=== PATIENT | female | born 1980 | race African-American/Black ===

== ENCOUNTER 2020-12-17 04:33 | Emergency (ER) | payer MEDICAID ==
[~2020-12-17] VITALS: Ht 172.7 cm; Wt 104.5 kg
[2020-12-17 04:44] VITALS: BP 114/73
[2020-12-17] MEDS ORDERED: GUAIFENESIN/CODEINE 200-20MG/10ML UDC PO ONE (05:00)
[2020-12-17] MEDS ORDERED: BENZ-16 MT (05:13)
== END 2020-12-17 05:51 | disposition home or self-care (01) ==
LOC: ER 04:33
DX: R05 Cough (principal); R53.1 Weakness
CPT/HCPCS: 93005; 99283

== ENCOUNTER 2021-07-05 23:43 | Emergency (ER) | payer MEDICAID ==
[~2021-07-05] VITALS: Ht 172.7 cm; Wt 108.0 kg
[~2021-07-05 23:43] MED LIST: BENZ-16 MT
[2021-07-06] MEDS ORDERED: SODIUM CHLORIDE 0.9% 1,000 ML IV ONE (03:15)
[2021-07-06 03:38] LABS: BASOPHILS % 0.4 % (0.0-2.0); HEMATOCRIT. 30.3 % (36.0-48.0); HEMOGLOBIN. 9.4 g/dL (12.0-16.0); LYMPHOCYTES % 31.5 % (20.0-50.0); MEAN CORPUSCULAR HEMOGLOBIN 21.4 pg (28.0-32.0); MEAN CORPUSCULAR VOLUME 68.6 fL (81.0-99.0); MEAN PLATELET VOLUME 6.9 fl (7.4-10.4); MONOCYTES % 8.9 % (2.0-8.0); NEUTROPHILS % 58.2 % (40.0-76.0); PLATELET 334 x1000/uL (130-400); RED BLOOD CELL COUNT 4.41 mill/uL (4.2-5.4); RED CELL DISTRIBUTION WIDTH 17.9 % (11.6-14.6)
[2021-07-06 03:48] LABS: CHLORIDE 105 mEq/L (98-107)
[2021-07-06 04:59] LABS: PLATELET ESTIMATE NORMAL
[2021-07-06] MEDS ORDERED: POTASSIUM CHLORIDE 20MEQ TABLET SR PO ONE (05:00)
[2021-07-06 06:45] VITALS: BP 126/76
[2021-07-06] MEDS ORDERED: GUAI-450 MT (06:49)
[2021-07-06] MEDS ORDERED: OXYM30SP26 BOTHNSTRLS (06:49)
== END 2021-07-06 07:12 | disposition home or self-care (01) ==
LOC: ER 23:43
DX: R05 Cough (principal); R09.81 Nasal congestion; R07.9 Chest pain, unspecified; Z20.822 Contact with and (suspected) exposure to COVID-19; I10 Essential (primary) hypertension; Z79.899 Other long term (current) drug therapy; E86.0 Dehydration
CPT/HCPCS: 36415; 71045; 80053; 83605; 85025; 87426; 93005; 96360; 99285; C9803; J7030; U0003; U0005; Z7610

== ENCOUNTER 2024-02-02 16:35 | Emergency (ER) | payer MEDICAID, OTHER ==
[~2024-02-02] VITALS: Ht 172.7 cm; Wt 92.3 kg
[~2024-02-02 16:35] MED LIST changes: +GUAI-450 MT; +OXYM30SP26 BOTHNSTRLS
[2024-02-02 16:51] VITALS: BP 149/84; PULSE 75; RESP 16; TEMP 98; O2SAT 100
[2024-02-02] MEDS: LIDOCAINE HCL/PF 1% 10 MG/ML 5ML VIAL INFIL ONE (18:45)
[2024-02-02] MEDS: BACITRACIN ZINC OINT UDPKT TOP ONE (18:45)
[2024-02-02] MEDS: TETANUS, DIPHTHERIA, PERTUSSIS VAC/PF 0.5ML (>10YR OLD) IM ONE (19:29)
[2024-02-02] MEDS: IBUPROFEN 600MG TABLET PO ONE (19:29)
== END 2024-02-02 20:10 | disposition home or self-care (01) ==
LOC: ER 16:35
DX: S61.212A Laceration without foreign body of right middle finger without damage to nail, initial encounter (principal); I10 Essential (primary) hypertension; W26.9XXA Contact with unspecified sharp object(s), initial encounter; Y93.89 Activity, other specified; Y92.89 Other specified places as the place of occurrence of the external cause; Y99.8 Other external cause status
CPT/HCPCS: 81025; 90715; 12001; 90471; 99283; Z7610 ×2